=== PATIENT | male | born 1980 | race Caucasian/White ===

== ENCOUNTER 2019-06-04 19:02 | Emergency (ER) | payer SELFPAY ==
[2019-06-04] MEDS ORDERED: Dexamethasone TAB* 4 MG PO ONE (20:01)
[2019-06-04] MEDS ORDERED: Albuterol/Ipratropium NEB.SOL* Albuterol 2.5 MG/Ipratropium 0.5 MG 3 ML INH ONE (20:01)
--- NOTE | 2019-06-04 20:50 | ED ---
Respiratory - HPI Summary HPI Summary: 38-year-old male presents with ear pain for the past 6 months. He has had a sore throat and started developed cough for the psat couple weeks. [facility] which did not help his symptoms. He states he lost his voice. He states he tried treating for acid reflux but did not improve his symptoms. He denies any productive cough. Denies any fevers. States he's been wheezing. Denies abdominal pain. No nausea or vomiting. He denies any history of asthma or COPD. Is a smoker. He denies any pain or swelling in his calf muscles. He does currently have a primary. On exam has a hoarse voice noted. TMs normal with fluid behind TMs. Pharynx normal. Lungs some wheezing noted with improvement with the breathing treatment. Gave dosed Decadron. X-ray shows no acute finding. We'll give inhaler and steroids. Told follow [facility] with [facility]. Patient understands and agrees plan. - History of Current Complaint Chief Complaint: EDEarPain Stated Complaint: EAR AND THROAT PAIN PER PT Time Seen by Provider: 06/04/19 19:43 Pain Intensity: 6 - Allergy/Home Medications Allergies/Adverse Reactions: Allergies Allergy/AdvReac Type Severity Reaction Status Date / Time No Known Allergies Allergy Verified 07/15/12 17:45 PMH/Surg Hx/FS Hx/Imm Hx Endocrine/Hematology History: Denies: Hx Anticoagulant Therapy Respiratory History: Denies: Hx Asthma Musculoskeletal History: Reports: Hx Scoliosis - Surgical History Surgery Procedure, Year, and Place: back surgeries 2009,2010 Infectious Disease History: No Infectious Disease History: Denies: Traveled Outside the [place] in Last 30 Days - Social History Alcohol Use: None Substance Use Type: Reports: Marijuana Smoking Status (MU): Light Every Day Tobacco Smoker Review of Systems Negative: Fever Positive: Sore Throat, Nasal Discharge Negative: Chest Pain Positive: Cough. Negative: Shortness Of Breath All Other Systems Reviewed And Are Negative: Yes Physical Exam Triage Information Reviewed: Yes Vital Signs On Initial Exam: Initial Vitals Temp Pulse Resp BP Pulse Ox 98.7 F 91 18 165/99 99 06/04/19 19:08 06/04/19 19:08 06/04/19 19:08 06/04/19 19:08 06/04/19 19:08 Vital Signs Reviewed: Yes Appearance: Positive: Well-Appearing Skin: Positive: Warm, Dry Head/Face: Positive: Normal Head/Face Inspection Eyes: Positive: Normal, EOMI, HARRY, Conjunctiva Clear ENT: Positive: Pharynx normal, Pharyngeal erythema, TMs normal - fluid behind TM , Uvula midline, Other - soft palate symmetric, hoarse voice noted. Negative: Trismus, Muffled voice Respiratory/Lung Sounds: Positive: Breath Sounds Present, Wheezes Cardiovascular: Positive: Normal, RRR Abdomen Description: Positive: Nontender, Soft Bowel Sounds: Positive: Present Musculoskeletal: Positive: Normal Neurological: Positive: Normal Psychiatric: Positive: Normal Procedures - Sedation Patient Received Moderate/Deep Sedation with Procedure: No Diagnostics - Vital Signs Vital Signs Temp Pulse Resp BP Pulse Ox 06/04/19 19:08 98.7 F 91 18 165/99 99 - Laboratory Lab Statement: Any lab studies that have been ordered have been reviewed, and results considered in the medical decision making process. Re-Evaluation - Re-Evaluation First Eval Re-Evaluation Time: 20:55 Change: Improved Comment: lungs better after breathing treatment, patient states feels same Disposition - Course Course Of Treatment: 38-year-old male presents with ear pain for the past 6 months. He has had a sore throat and started developed cough for the psat couple weeks. [facility] which did not help his symptoms. He states he lost his voice. He states he tried treating for acid reflux but did not improve his symptoms. He denies any productive cough. Denies any fevers. States he's been wheezing. Denies abdominal pain. No nausea or vomiting. He denies any history of asthma or COPD. Is a smoker. He denies any pain or swelling in his calf muscles. He does currently have a primary. On exam has a hoarse voice noted. TMs normal with fluid behind TMs. Pharynx normal. Lungs some wheezing noted with improvement with the breathing treatment. Gave dosed Decadron. X-ray shows no acute finding. We'll give inhaler and steroids. Told [facility] with [facility]. Patient understands and agrees plan. - Differential Dx - Cardiopulmonary Differential Diagnoses - Cardiopulmonary: Bronchitis, Laryngitis, Lower Resp Infection - Diagnoses Provider Diagnoses: Bronchitis, Laryngitis Discharge ED - Sign-Out/Discharge Documenting (check all that apply): Patient Departure - Discharge Plan Condition: Good Disposition: HOME Prescriptions: predniSONE 50 mg TAB [Deltasone 50 mg TAB] 50 mg PO DAILY #4 tab Patient Education Materials: Acute Bronchitis (ED) Referrals: [facility] [Outside] Additional Instructions: Use inhaler one puff every 6 hours for cough as needed Take steroid once a day for 4 days Use saline in the nose follow up with [facility] within 5 days Return to ED if develop any new or worsening symptoms - Billing Disposition and Condition Condition: GOOD Disposition: Home
[2019-06-04] MEDS ORDERED: A lbuterol Hfa (PREPAK) 1 MDI - ED TAKE HOME DISPENSING ONLY INHH ONE (20:51)
[2019-06-04 21:18] VITALS: BP 158/88
== END 2019-06-04 21:15 | disposition home or self-care (01) ==
LOC: ED 19:02
DX: J40 Bronchitis, not specified as acute or chronic (principal); J04.0 Acute laryngitis; H92.09 Otalgia, unspecified ear; F17.210 Nicotine dependence, cigarettes, uncomplicated
CPT/HCPCS: 71046; 99282; A9270-GY; J8540